=== PATIENT | female | born 1975 | race Two or more races ===

== ENCOUNTER 2018-08-09 20:13 | Emergency (ER) | payer OTHER ==
[~2018-08-09] VITALS: Ht 165.1 cm; Wt 83.5 kg
[2018-08-09 22:27] VITALS: BP 131/87
== END 2018-08-09 22:27 | disposition home or self-care (01) ==
LOC: ED 20:13
DX: K12.1 Other forms of stomatitis (principal)

== ENCOUNTER 2020-01-07 06:13 | Emergency (ER) | payer OTHER ==
[~2020-01-07] VITALS: Ht 165.1 cm; Wt 85.3 kg
[2020-01-07 06:23] VITALS: Ht 165.1 cm; Wt 85.3 kg
[2020-01-07 06:52] VITALS: BP 132/66
== END 2020-01-07 06:52 | disposition home or self-care (01) ==
LOC: ED 06:13
DX: S86.911A Strain of unspecified muscle(s) and tendon(s) at lower leg level, right leg, initial encounter (principal); X58.XXXA Exposure to other specified factors, initial encounter; Y93.89 Activity, other specified; Y92.89 Other specified places as the place of occurrence of the external cause; Y99.8 Other external cause status